=== PATIENT | female | born 1955 | race Caucasian/White ===

== ENCOUNTER 2019-08-12 10:33 | Day surgery (SDC) | payer OTHER ==
--- NOTE | 2019-08-12 06:49 | History and Physical - Ferro ---
CHIEF COMPLAINT/HISTORY OF CHIEF COMPLAINT: This patient presents with a history of an intractable lumbar radiculopathy. Treatment history has been extensive, conservatively based, and unsuccessful. Physical therapy biomechanical treatments did not work. Surgical evaluation suggested no surgery. Spinal cord stimulator trial was unsuccessful. Diagnostic studies show diffuse disk abnormalities and spondylosis throughout the entire lumbar spine. PAST MEDICAL HISTORY: Hypertension, sleep apnea, cerebrovascular disease, cardiac dysrhythmia, and irritable bowel syndrome. PAST SURGICAL HISTORY: Renal lithiasis. MEDICATIONS ON ADMISSION: List to be provided. ALLERGIES: PENICILLIN. FAMILY/PSYCHOSOCIAL HISTORY: Family history - Cancer. SYSTEMS REVIEW: The patient is appropriate in no acute distress. The remainder of the systems review is noncontributory. PHYSICAL EXAMINATION: Height is 5'10", weight is 300 pounds. No vital signs. HEENT: Within normal limits. LUNGS: Clear. HEART: Rapid and regular. ABDOMEN: Nontender. MUSCULOSKELETAL: Examination of the musculoskeletal system shows diffuse tenderness throughout the lumbar spine. Range of motion produces pain throughout the low back and extending into the left left lower extremity. Motor and sensory reveal function which appears to be intact. NEUROLOGIC: Cranial nerves are intact. Pain level 0-10 is a 10/10. IMPRESSION: LUMBAR RADICULOPATHY, ICD-10 CODE M54.16 AND M54.17. PLAN: The patient is here for an implanted spinal catheter infusion trial with Hydromorphone to determine if the implantation of a permanent system can be of any value in pain control. The procedure, its risks, side effects and complications have all been extensive, reviewed and discussed. She was put in contact with a clinical specialist through [facility] who answered her questions as well. The procedure will be considered outpatient, although an overnight stay will be recommended. Implant of the spinal catheter will represent a potential spinal headache source so an epidural blood patch will be performed, keeping her flat for four and slowly elevated for one as a prophylactic measure to prevent the headache. She will be discharged in the morning. All questions were answered. JOB NUMBER: [id number] [facility]
[~2019-08-12 10:33] MED LIST: ACETAMINOPHEN 1,000 MG/100 ML BTL IVPB ONE; CLINDAMYCIN 600MG/50ML PREMIX 600 MG/50 ML BAG IVPB ONE; FAMOTIDINE 20MG TABLET PO ONE; HYDROMORPHONE PF 2MG/ML AMP 0.008 MG in 0.9 % SODIUM CHLORIDE 10ML VIA 0.996 ML IV ONE; HYDROMORPHONE PF 2MG/ML AMP 8 MG in 0.9 % SODIUM CHLORIDE 500ML 496 ML IV ONE; MECLIZINE 25 MG TABLET PO ONE; METOCLOPRAMIDE 10 MG TABLET PO ONE
[2019-08-12] MEDS ORDERED: MIDAZOLAM HCL 2MG/2ML VIAL IV ONE (10:34)
[2019-08-12] MEDS ORDERED: FENTANYL PF 100MCG/2ML VIAL IV ONE (10:34)
[2019-08-12] MEDS ORDERED: PROPOFOL 10 MG/ML VIAL IV ONE (10:34)
[2019-08-12] MEDS ORDERED: LIDOCAINE 2% MDV (20MG/ML) 20ML VIAL IV ONE (10:34)
[2019-08-12] MEDS ORDERED: 0.9 % SODIUM CHLORIDE 1000ML 1,000 ML IV ONE (11:33)
[2019-08-12] MEDS ORDERED: BUPIVACAINE 0.5% W/EPI MPF 30 ML VIAL SQ ONE ×2 (13:49)
[2019-08-12] MEDS ORDERED: LIDOCAINE 1% W/EPI 1:100,000 MDV 20 ML VIAL SQ ONE ×2 (13:49)
[2019-08-12] MEDS ORDERED: Clindamycin 600mg vial 150 MG/ML VIAL IR ONE (13:49)
[2019-08-12] MEDS ORDERED: DIPHENHYDRAMINE HCL 25 MG CAPSULE PO PRN ×2 (15:30)
[2019-08-12] MEDS ORDERED: ACETAMINOPHEN 325 MG TAB PO PRN (15:30)
[2019-08-12] MEDS ORDERED: AL HYDROX/MAG HYDROX 30ML UD PO PRN (15:30)
[2019-08-12] MEDS ORDERED: TEMAZEPAM 15 MG CAPSULE PO PRN (15:30)
[2019-08-12] MEDS ORDERED: HYDROCODONE/APAP 7.5/325MG TABLET PO PRN (15:30)
[2019-08-12] MEDS ORDERED: SENNOSIDES/DOCUSATE SODIUM UD CAPSULE PO PRN ×2 (15:30)
[2019-08-12] MEDS ORDERED: NALOXONE 0.4 MG/1 ML VIAL IVP PRN (15:30)
[2019-08-12] MEDS ORDERED: RINGERS SOLUTION,LACTATED 1,000 ML IV SCH (15:30)
[2019-08-12] MEDS ORDERED: METOCLOPRAMIDE HCL 10 MG/2 ML VIAL IVP PRN (15:30)
[2019-08-12] MEDS ORDERED: METOCLOPRAMIDE 10 MG TABLET PO PRN (15:30)
[2019-08-12] MEDS ORDERED: OXYCODONE/APAP 10MG-325MG TABLET PO PRN ×2 (15:30)
[2019-08-12] MEDS ORDERED: DIPHENHYDRAMINE HCL 50 MG/ML VIAL IVP PRN ×2 (15:30)
[2019-08-12] MEDS ORDERED: HYDROMORPHONE HCL 2 MG/ML VIAL IM PRN ×2 (15:30)
[2019-08-12] MEDS: METFORMIN 500 MG TABLET PO SCH (21:05)
[2019-08-12] MEDS: PREGABALIN (LYRICA) 100MG CAPSULE PO SCH (21:06)
[2019-08-12] MEDS: DIPHENOXYLATE HCL/ATROP 2.5/0.025MG TABLET PO SCH (21:07)
[2019-08-12] MEDS: BUSPIRONE 5 MG TABLET PO SCH (21:07)
[2019-08-12] MEDS: CLINDAMYCIN 600MG/50ML PREMIX 600 MG/50 ML BAG IVPB SCH (21:11)
[2019-08-12] MEDS ORDERED: ATORVASTATIN 20 MG TABLET PO SCH (22:00)
[2019-08-12] MEDS ORDERED: ZOLPIDEM TARTRATE 5 MG TABLET PO SCH (22:00)
[2019-08-12] MEDS: HYDROCODONE/APAP 7.5/325MG TABLET PO PRN (22:27)
[2019-08-13] MEDS: CLINDAMYCIN 600MG/50ML PREMIX 600 MG/50 ML BAG IVPB SCH (05:18)
--- NOTE | 2019-08-13 08:09 | Operative Note - Ferro ---
DATE OF SURGERY: 08/12/2019 PREOPERATIVE DIAGNOSIS: LUMBAR RADICULOPATHY, ICD-10 CODE M54.16 AND M54.17. OPERATION: 1. FLUOROSCOPICALLY GUIDED ACCESS SPINAL SPACE AT L3-L4, PLACEMENT OF THIN WALLED SPINAL CATHETER T11-T12. 2. DIAGNOSTIC MYELOGRAPHY WITH RADIOLOGIC SUPERVISION AND INTERPRETATION. 3. SPINAL OPIOID BOLUS HYDROMORPHONE INTO SPINAL SPACE 0.006 MG. 4. INCISION, SUBCUTANEOUS DISSECTION AND ANCHORING OF SPINAL CATHETER TO THE SUPRASPINOUS FASCIA WITH A HazelcastTRONIC ANCHOR AND NONABSORBABLE SUTURE. 5. FLUOROSCOPICALLY GUIDED INCISION, SUBCUTANEOUS DISSECTION AND CREATION OF SUBCUTANEOUS POUCH AT RIGHT POSTERIOR GLUTEAL MARGIN ULTIMATELY FOR PLACEMENT OF PUMP. 6. TUNNELLING BETWEEN MIDLINE SPINAL CATHETER POUCH AND TUNNELLING SPINAL CATHETER TO RIGHT FLANK POUCH, INTERFACED WITH CONNECTOR TO SECOND CATHETER COMPONENT, SECOND CATHETER COMPONENT TUNNELLED 6 CM SUPERIOR EXITING SKIN. 7. INTERFACE EXTERNAL CATHETER WITH EXTERNAL PUMP SET TO DELIVER HYDROMORPHONE AT 0.16 MG A DAY. 8. CLOSURE OF MIDLINE INCISION USING VICRYL FOR FASCIA AND RUNNING NYLON FOR SKIN, CLOSURE OF FLANK POUCH USING RUNNING NYLON. 9. EPIDURAL BLOOD PATCH AT L4-L5 20 ML AUTOLOGOUS BLOOD, STERILE TECHNIQUE, DRAWN FROM THE LEFT ANTECUBITAL. 10. DRESSING PLACED TO SECURE CATHETER AND ALL CONNECTIONS UNDER STERILE DRESSING. 11. PATIENT TRANSPORTED TO THE RECOVERY ROOM STABLE. NO SIDE EFFECTS FROM PROCEDURE. NO UNUSUAL FUNCTIONALITY ABNORMALITIES, FULL FUNCTION OF EXTREMITIES. PILLOW UNDER HEAD AND NECK, FLAT, STABLE. SURGEON: Jarett Soto D.O. ANESTHESIA: Local sedation. ANESTHESIA PROVIDER: Demond Ruffin CRNA INDICATION: This patient presents with history of intractable lumbar radiculopathy. Due to the failure of all therapies, the patient is here for an implanted spinal catheter infusion trial with Hydromorphone to determine if the implantation of a permanent system can be of any value in pain control. Her pain is radicular, her current pain level 0-10 is a 10. PROCEDURE: Intravenous line, vital sign monitoring, IV sedation, prepped and draped, sterile technique. The patient was positioned on the table prone. Sterile prep, sterile technique. Under imaging the spinal interspace at L3-L4 was identified and marked, infiltrated, a 20-gauge 6-inch needle with its bevel along the long axis in the paramedian approach was placed into the spinal space. With CSF flow a thin walled spinal catheter was advanced and positioned at T11- T12. Diagnostic myelography under radiologic supervision and interpretation showed appropriate catheter position. No kinks or bends, straight and linear. With this confirmation a bolus of Hydromorphone 0.06 mg given into the spinal space, CSF flow is still noted through the catheter, the catheter was clamped. The skin above and below the needle was infiltrated, an incision was made and subcutaneous dissection was conducted to the supraspinous fascia. The needle was removed, the catheter was anchored to the supraspinous fascia with a emo2 Inctronic anchor and nonabsorbable suture. At the right flank ultimately for the site of the pump, the skin was infiltrated, an incision was made, and subcutaneous dissection was conducted to form a small pouch. A tunnelling tool was used to carry the catheter into this pouch and then the catheter was interfaced with the second catheter component by way of a connector. The second catheter component was then tunnelled 6 cm superior exiting the skin. Antibiotic irrigation and Bovie for hemostasis. The incisions were then closed midline using Vicryl for fascia and running nylon for skin. The flank pouch was closed with running nylon. The skin at L4-L5 was infiltrated with a 17-gauge 6- inch Tuohy needle with loss of resistance into the epidural space, subcutaneously 20 ml autologous blood drawn , sterile technique from the antecubital, placed on the field and then an epidural blood patch was performed at this level. The needle was removed, a dressing was placed, 4x4's, Mediport tape securing the catheter and all connections under a sterile dressing. She was transported to the Recovery Room stable. Full functionality of the extremities. No unusual pain pattern, only pain. She tolerated the procedure without difficulty. She will be kept flat for four hours and slowly elevated for one. She will be kept overnight for observation and discharged in the morning. DISCHARGE INSTRUCTIONS: 1. The sites are to remain clean and dry. No showering or bathing in any way that would disrupt the dressings, if it happens contact the clinic. 2. Standard medications will be resumed including the antibiotic Levaquin 500 mg once a day for fourteen days. 3. Spinal opioid side effects respiratory depression, nausea, vomiting, constipation, urinary retention, or rash have all been discussed and reviewed. Should they happen she should contact the clinic or go to the local Emergency Room. The trial will run two weeks, during this time she will come to the office for three increases, the first could happen in the next three to four days. All other instructions were provided. JOB NUMBER: [id number] [facility]TDD
[2019-08-13] MEDS: HYDROCODONE/APAP 7.5/325MG TABLET PO PRN (09:14)
[2019-08-13] MEDS: BUSPIRONE 5 MG TABLET PO SCH (09:48)
[2019-08-13] MEDS: METFORMIN 500 MG TABLET PO SCH (09:48)
[2019-08-13] MEDS: PREGABALIN (LYRICA) 100MG CAPSULE PO SCH (09:49)
[2019-08-13] MEDS: DIPHENOXYLATE HCL/ATROP 2.5/0.025MG TABLET PO SCH (09:49)
[2019-08-13] MEDS ORDERED: LORATADINE 10 MG TABLET PO SCH (10:00)
[2019-08-13] MEDS ORDERED: LOSARTAN POTASSIUM 100 MG TABLET PO SCH (10:00)
[2019-08-13] MEDS ORDERED: VENLAFAXINE ER 75 MG CAPSULE PO SCH (10:00)
[2019-08-13] MEDS ORDERED: VERAPAMIL HCL 240 MG TAB ER PO SCH (10:00)
[2019-08-13] MEDS ORDERED: MAGNESIUM OXIDE 400 MG TABLET PO SCH (10:00)
--- NOTE | 2019-08-14 02:23 | RADIOLOGY REPORT ---
EXAMINATION: Thoracic Spine Single View EXAM DATE: 08/12/2019 5:13 PM TECHNIQUE: Lateral view INDICATION: S/P PAIN PUMP TRIAL COMPARISON: None ENCOUNTER: Initial FINDINGS: AP view of the lower thoracic and upper lumbar spine is provided. Alignment is preserved. There is mu ltilevel degenerative disc disease with osteophytosis. There is a fine catheter or wire overlying the left midabdomen. There is a punctate opacity overlying the T12 vertebral body. There are no other kn ow where the findings IMPRESSION: DJD. Other findings as above Dictated by: Amor Stern MD on 08/14/2019 2:19 AM. .
== END 2019-08-13 09:51 | disposition home or self-care (01) ==
LOC: SUR 10:33 → MEDSURG 15:14 → SUR 08-13 09:51
PROVIDERS: ATTEND Pain Medicine Interventional Pain Medicine
DX: M54.16 Radiculopathy, lumbar region (principal); M54.17 Radiculopathy, lumbosacral region; I10 Essential (primary) hypertension; G62.9 Polyneuropathy, unspecified; E11.9 Type 2 diabetes mellitus without complications; E78.00 Pure hypercholesterolemia, unspecified; J44.9 Chronic obstructive pulmonary disease, unspecified; Z86.73 Personal history of transient ischemic attack (TIA), and cerebral infarction without residual deficits; R01.1 Cardiac murmur, unspecified; G47.33 Obstructive sleep apnea (adult) (pediatric); F17.210 Nicotine dependence, cigarettes, uncomplicated
CPT/HCPCS: 36416; 72020; 82948; 85002; J1170; J7030; J7040

== ENCOUNTER 2019-08-15 13:54 | Observation (INO) | payer OTHER ==
[~2019-08-15 13:54] MED LIST changes: -HYDROMORPHONE PF 2MG/ML AMP 0.008 MG in 0.9 % SODIUM CHLORIDE 10ML VIA 0.996 ML IV ONE; -HYDROMORPHONE PF 2MG/ML AMP 8 MG in 0.9 % SODIUM CHLORIDE 500ML 496 ML IV ONE; -METOCLOPRAMIDE 10 MG TABLET PO ONE; +RINGERS SOLUTION,LACTATED 1,000 ML IV ONE
[2019-08-15] MEDS ORDERED: 0.9 % SODIUM CHLORIDE 1,000 ML BAG IV ONE (14:28)
[2019-08-15] MEDS ORDERED: ONDANSETRON HCL IV 4 MG/2 ML VIAL IVP ONE (14:28)
--- NOTE | 2019-08-15 14:33 | Emergency Department Record ---
History of Present Illness - General Chief Complaint: General Stated Complaint: PAIN PUMP CAME APART Time Seen by Provider: 08/15/19 14:14 Source: Patient Mode of Arrival: Ambulatory Limitations: No limitations - History of Present Illness Initial comments: 63 yo female presents after her pain pump catheter became disconnected from her tubing. She was sent in by Dr Soto for repair. The patient states she has been having headaches and nausea. No fever. Her dressing were checked yesterday in the office. Her dressing are soaking wet at arrival. No bleeding. Dr Soto called asking the tubing be clamped with a hemastat and she will be admitted for care. -: Days(s) Location: Other Radiation: Back Quality: Other Consistency: Constant Improves with: Other (Laying ochoa) Worsens with: Other (Upright) Associated Symptoms: Headaches, Loss of appetite, Malaise, Nausea/vomiting Treatments Prior to Arrival: Other - Gary Coma Scale Eye Response: (4) Open spontaneously Motor Response: (6) Obeys commands Verbal Response: (5) Oriented [place] Total: 15 - Related Data Allergies Allergy/AdvReac Type Severity Reaction Status Date / Time Penicillins Allergy PT UNSURE Verified 08/15/19 14:35 OF REACTION morphine AdvReac NAUSEA Verified 08/15/19 14:35 Review of Systems Constitutional: Reports: Malaise, Weakness. Denies: Chills, Fever Eyes: Reports: Photophobia. Denies: Eye discharge ENT: Denies: Congestion, Throat pain Respiratory: Denies: Cough Cardiovascular: Denies: Chest pain, Palpitations, Syncope Endocrine: Reports: Fatigue Gastrointestinal: Reports: Nausea, Vomiting. Denies: Abdominal pain, Diarrhea Genitourinary: Denies: Dysuria, Urgency Musculoskeletal: Reports: Back pain. Denies: Arthralgia, Joint swelling, Myalgia, Neck pain Skin: Denies: Bruising, Change in color, Rash Neurological: Reports: Headache, Vertigo. Denies: Abnormal gait, Confusion, Numbness, Paresthesias, Seizure, Tingling, Tremors, Weakness Psychiatric: Denies: Anxiety Hematological/Lymphatic: Denies: Easy bleeding, Easy bruising Past Medical History - SOCIAL HISTORY Smoking Status: Current every day smoker Alcohol Use: None Drug Use: None - RESPIRATORY Hx Respiratory Disorders: Yes Hx Bronchitis: Yes (HX) Hx COPD: Yes (MILD DOESNT USE INHALERS) Hx Pneumonia: Yes (HX) Hx Sleep Apnea: Yes Hx of CPAP: Yes Comment:: "SMOKERS COUGH" - CARDIOVASCULAR Hx Cardio Disorders: Yes Hx Hypertension: Yes (WELL CONTROLLED ON MEDS) - NEURO Hx Neuro Disorders: Yes Hx Headaches: Yes (OCCASS SINUS) Hx Neuropathy: Yes (FEET AND LEGS) Hx TIA: Yes (HX OF NO RESIDUAL) Comment:: BALANCE ISSUES - GI Hx GI Disorders: Yes Hx of Polyps: Yes (COLON) - Hx Genitourinary Disorders: Yes Hx Kidney Stones: Yes (HX OF) - ENDOCRINE Hx Endocrine Disorders: Yes Hx Diabetes: Yes (DX'D 2013) Comment:: DOESNT CHECK BLOOD SUGARS A1C 7.6 - MUSCULOSKELETAL Hx Musculoskeletal Disorders: Yes Hx Arthritis: Yes - PSYCH Hx Psych Problems: Yes Hx Anxiety: Yes (WELL CONTROLLED WITH MEDS) Comment:: PTSD MILD - HEMATOLOGY/ONCOLOGY Hx Hematology/Oncology Disorders: Yes Hx Bruising: Yes (BRUISES EASILY) Hx Cancer: Yes (LEFT BREAST AND SKIN CA) Hx Chemotherapy: Yes Hx Radiation Therapy: Yes Family Medical History Any Significant Family History?: Yes Hx Cancer: Brother/Sister, Grandparents Hx Heart Disease: Father, Mother Physical Exam - General General Appearance: Alert, Oriented x3, Cooperative, No acute distress Limitations: No limitations - Head Head exam: Atraumatic, Normal inspection - Eye Eye exam: Normal appearance, PERRL. negative: Conjunctival injection, Nystagmus, Periorbital swelling, Scleral icterus - ENT ENT exam: Normal exam, Mucous membranes moist Ear exam: Normal external inspection Nasal Exam: Normal inspection Mouth exam: Normal external inspection - Neck Neck exam: Normal inspection, Full ROM. negative: Tenderness - Respiratory Respiratory exam: negative: Normal lung sounds bilaterally, Decreased breath sounds, Prolonged expiratory, Rhonchi, Stridor, Wheezes - Cardiovascular Cardiovascular Exam: Regular rate, Normal rhythm, Normal heart sounds - GI/Abdominal GI/Abdominal exam: Soft. negative: Tenderness - Rectal Rectal exam: Deferred - exam: Deferred - Extremities Extremities exam: Normal inspection - Back Back exam: Denies: Normal inspection - Neurological Neurological exam: Alert, Oriented X3 - Psychiatric Psychiatric exam: Normal affect, Normal mood - Skin Skin exam: Dry, Intact, Normal color, Warm Course - Reevaluation(s) Reevaluation #1: 08/15/19 14:[address] Soto's instructions the dressing was removed to assess the situation. The catheter was found not connected with about 10cm protruding. Clear fluid is draining. I used sterile technique, chloraprep the area and crimped and clamped the catheter. Clean dressing applied. 08/15/19 17:50 The labs were reviewed The CBC was reviewed No significant changes BMP reviewed CR is 2.2. No prior. Dr Soto admitted the patient for surgery tonight 08/15/19 18:13 The patient was informed regarding her change in renal function and recommendation of close follow up Medical Decision Making - Lab Data Result diagrams: 08/15/19 15:10 08/15/19 15:10 Disposition Disposition: Admit Clinical Impression: Post-op pain, Headache, Vomiting, Renal insufficiency Disposition: Still a Patient at [facility] [place] Decision to Admit: Admit from ER Decision to Admit Date: 08/15/19 Decision to Admit Time: 14:33 Condition: (2) Stable Time of Disposition: 14:33 Quality - Quality Measures Quality Measures: N/A - Blood Pressure Screening Does Patient Have Any of the Following: Active Dx of HTN Blood Pressure Classification: Normal BP Reading Systolic Measurement: 93 Diastolic Measurement: 53 Screening for High Blood Pressure: Patient Exclusion, Hx of HTN [[id number]]
[2019-08-15] MEDS ORDERED: METOCLOPRAMIDE HCL 10 MG/2 ML VIAL IVP ONE (15:05)
[2019-08-15 15:14] LABS: HEMATOCRIT 43.8 % (35.0-47.0); HEMOGLOBIN 13.6 gm/dl (11.6-16.0); MEAN CELL VOLUME 95.6 fl (81-97); MEAN CORPUSCULAR HEMOGLOBIN 29.7 pg (27-33); MEAN CORPUSCULAR HGB CONC 31.1 g/dl (32-36); MEAN PLATELET VOLUME 11.9 fl (7.4-10.4); PLATELET COUNT 209 K/uL (130-400); RED BLOOD COUNT 4.58 M/uL (3.80-5.40); RED CELL DISTRIBUTION WIDTH 17.6 % (11.5-14.5); WHITE BLOOD COUNT W/O DIFF 12.6 K/uL (4.2-12.2)
[2019-08-15 15:23] LABS: CREATININE 2.2 mg/dL (0.5-0.9)
[2019-08-15] MEDS: RINGERS SOLUTION,LACTATED 1,000 ML IV PRN ×2 (15:24→22:17)
[2019-08-15 15:27] LABS: PARTIAL THROMBOPLASTIN TIME 28.6 SECONDS (24.5-39.1)
[2019-08-15] MEDS ORDERED: BUPIVACAINE 0.5% W/EPI MPF 30 ML VIAL SQ ONE ×2 (17:20)
[2019-08-15] MEDS ORDERED: LIDOCAINE 1% W/EPI 1:200,000 MPF 30ML SQ ONE ×2 (17:20)
[2019-08-15] MEDS ORDERED: ACETAMINOPHEN 325 MG TAB PO PRN (18:40)
[2019-08-15] MEDS ORDERED: HYDROCODONE/APAP 7.5/325MG TABLET PO PRN ×2 (18:40→18:49)
[2019-08-15] MEDS ORDERED: SENNOSIDES/DOCUSATE SODIUM UD CAPSULE PO PRN (18:40)
[2019-08-15] MEDS ORDERED: DIPHENHYDRAMINE HCL 25 MG CAPSULE PO PRN (18:40)
[2019-08-15] MEDS ORDERED: AL HYDROX/MAG HYDROX 30ML UD PO PRN (18:40)
[2019-08-15] MEDS ORDERED: METOCLOPRAMIDE 10 MG TABLET PO PRN (18:40)
[2019-08-15] MEDS ORDERED: HYDROMORPHONE HCL 2 MG/ML VIAL IM PRN (18:40)
[2019-08-15] MEDS ORDERED: OXYCODONE/APAP 10MG-325MG TABLET PO PRN ×2 (18:40→18:49)
[2019-08-15] MEDS ORDERED: TEMAZEPAM 15 MG CAPSULE PO PRN (18:40)
[2019-08-15] MEDS: CEFAZOLIN 2 Gram 2 GM/50 ML BAG IVPB SCH (19:43)
[2019-08-16] MEDS: CEFAZOLIN 2 Gram 2 GM/50 ML BAG IVPB SCH ×2 (03:00→09:32)
[2019-08-16] MEDS ORDERED: ONDANSETRON HCL IV 4 MG/2 ML VIAL IVP ONE (11:14)
[2019-08-16] MEDS ORDERED: LIDOCAINE 2% MDV (20MG/ML) 20ML VIAL IV ONE (11:14)
[2019-08-16] MEDS ORDERED: MIDAZOLAM HCL 2MG/2ML VIAL IV ONE (11:14)
[2019-08-16] MEDS ORDERED: PROPOFOL 10 MG/ML VIAL IV ONE (11:14)
--- NOTE | 2019-08-17 07:32 | Operative Note - Ferro ---
DATE OF SURGERY: 08/15/2019 PREOPERATIVE DIAGNOSIS: 1. LUMBAR RADICULOPATHY, ICD-10 CODE M54.16 AND M54.17. 2. IMPLANTED SPINAL CATHETER INFUSION TRIAL HYDROMORPHONE WITH CATHETER DISRUPTION AND SYSTEM VIOLATION. OPERATION: 1. FLUOROSCOPICALLY GUIDED INCISION, SUBCUTANEOUS DISSECTION, AND REMOVAL OF IMPLANTED SPINAL CATHETER. 2. INCISION, SUBCUTANEOUS DISSECTION, AND REMOVAL OF EXTERNALIZED CATHETER FOR PUMP INTERFACE. SURGEON: Jarett Soto D.O. ANESTHESIA: Local sedation. ANESTHESIA PROVIDER: Brenna Parkinson CRNA INDICATION: This patient presents with history of intractable lumbar radiculopathy. Approximately 3 to 4 days ago this patient had an implanted catheter trial infusion with Hydromorphone started. Approximately five hours ago this patient contacted the pager and myself indicating that she noticed that the catheter to her body had been from the catheter component to the external pump and was completely disconnected. I had her send me a picture by way of cell phone and noticed that the pump catheter and spinal catheter components had and were disconnected. At that point we had a complete disruption of the system and it needed to be removed. She was instructed to go to the Emergency Room where the Emergency Room would clamp the catheter. In my instructions initially by phone I suggested if she could find the catheter she should try to knot it or somehow kink it. She was unable to find the catheter because of the dressing so at that point she was directed back to the Emergency Room at [facility] where I had contacted the Emergency Room and given them instructions including using a hemostat to kink off the catheter and stop CSF leak. A call from the Emergency Room had confirmed, arrangements were made for this patient to be admitted and to be brought to the Operating Room. PROCEDURE: Intravenous line, vital sign monitoring, IV sedation, prepped and draped, sterile technique. The patient was positioned prone. Sterile prep, sterile technique. Midline incision for the implanted catheter infiltrated, incision made, subcutaneous dissection was conducted to the anchor, the suture cut, the anchor removed, and the pursestring suture placed to stop CSF leak. At the left posterior gluteal margin interface for the implanted catheter and an external catheter interfaced to the pump, skin infiltrated, incision made, and subcutaneous dissection was conducted to the connector which interfaced spinal from external catheter. This catheter was clamped, cut, the external catheter was removed by pulling away from the incision and the remainder of the implanted catheter was removed. Antibiotic irrigation, Bovie for hemostasis. The incision was then closed using Vicryl for the fascia and sandi for the skin and an OpSite dressing placed. She was transported to the Recovery Room stable, flat, pillow under head and knees. Although no blood patch was performed she will be kept flat for four, slowly elevated for one while we provide IV fluids. She will be discharged in the morning. She tolerated the surgery without difficulty. DISCHARGE INSTRUCTIONS: 1. All standard medications will be resumed including the antibiotic Levaquin 500 mg once a day for fourteen days. 2. We will resume oral analgesics although the system has been off for a minimum of twenty-four hours. No risk of withdrawal for that reason is admitted. 3. All other instructions were provided. Numbers to contact if problems given. She will be discharged in the morning. At that point the office will contact the patient on the following morning to set up a time for evaluation in the office. JOB NUMBER: [id number] MTDD
== END 2019-08-16 11:15 | disposition home or self-care (01) ==
LOC: ER 13:54 → MEDSURG 15:37
PROVIDERS: ADMIT Pain Medicine Interventional Pain Medicine; ATTEND Pain Medicine Interventional Pain Medicine
DX: T85.625A Displacement of other nervous system device, implant or graft, initial encounter (principal); M54.16 Radiculopathy, lumbar region; M54.17 Radiculopathy, lumbosacral region; J44.9 Chronic obstructive pulmonary disease, unspecified; I10 Essential (primary) hypertension; E11.9 Type 2 diabetes mellitus without complications; R01.1 Cardiac murmur, unspecified; G62.9 Polyneuropathy, unspecified; M19.90 Unspecified osteoarthritis, unspecified site; G47.33 Obstructive sleep apnea (adult) (pediatric); F17.210 Nicotine dependence, cigarettes, uncomplicated; Z86.73 Personal history of transient ischemic attack (TIA), and cerebral infarction without residual deficits; Z87.442 Personal history of urinary calculi; Z85.3 Personal history of malignant neoplasm of breast; Z85.828 Personal history of other malignant neoplasm of skin
CPT/HCPCS: 80048; 85027; 85610; 85730; 96375; 99285; J2405; J2765; J7120